=== PATIENT | male | born 1995 ===

== ENCOUNTER 2023-11-27 09:41 | Outpatient (CLI) | payer OTHER ==
--- NOTE | 2023-11-27 15:02 | MRI Report ---
PROCEDURE: Shoulder LT WO INDICATIONS: LEFT SHOULDER PAIN TECHNIQUE: Noncontrast oblique coronal T2 fast spin echo with fat saturation, oblique sagittal T1 spin echo and T2 fast spin echo with fat saturation, axial T1 spin echo and T2 fast spin echo with fat saturation a nd 3-D gradient echo through the shoulder. COMPARISON: None. FINDINGS: Image quality: Excellent. Rotator cuff: The supraspinatus, infraspinatus, and subscapularis tendons appear intact throughout. No rotator cuff muscle atrophy on sagittal images. Bones and bursae: No acute trabecular bone injury or fracture. Small chronic traction cystic changes are seen at the posterosuperior humeral head and greater tuberosity near the rotator cuff tendon inse rtions. No focal glenohumeral cartilage defect is seen. Minimal degenerative changes are seen at the acromioclavicular joint. Osseous tracts are seen related to removed clavicular fixation hardware. The re is trace fluid in the subacromial/subdeltoid bursa. No significant glenohumeral effusion. Capsule and soft tissues: There is intermediate signal of the superior to posterosuperior labrum nely t is suspicious for intrasubstance degeneration or chronic partial tearing. Proximal biceps long head tendon demonstrates mild tendinosis. There is partial effacement of fat signal in the rotator interv al. The anterior band of the inferior glenohumeral ligament and the middle glenohumeral ligament are thickened. IMPRESSION: 1.Questionable intrasubstance degeneration or chronic partial tearing of the superior to posterosuper ior labrum. No acute tear with uptake of [place] joint fluid is seen. However, there is a paucity of j oint fluid and MR arthrogram could be performed for further evaluation if there is high suspicion for labral tearing. 2.Mild proximal biceps long head tendinosis. 3.No significant rotator cuff tendon tear. 4.Trace subacromial/subdeltoid bursal effusion or bursitis. 5.Partial effacement of the rotator interval fat and mild thickening of the middle and inferior gleno humeral ligaments are nonspecific, but is suspicious for the clinical syndrome of adhesive capsulitis . Reviewed by: Otto Dailey MD on 11/27/2023 3:01 PM PDT Approved by: Otto Dailey MD on 11/27/2023 3:01 PM PDT Station ID: [id number]
== END 2023-11-27 09:42 | disposition home or self-care (01) ==
LOC: DI 09:41
PROVIDERS: ATTEND Orthopaedic Surgery
DX: M67.922 Unspecified disorder of synovium and tendon, left upper arm (principal)